=== PATIENT | female | born 1975 | race Caucasian/White ===

== ENCOUNTER 2016-08-14 12:01 | Emergency (ER) | payer MEDICAID ==
[~2016-08-14] VITALS: Ht 152.4 cm; Wt 84.0 kg
[~2016-08-14 12:01] MED LIST: ATOR1TAB18 PO; DEPA500T PO; EPIP0.3I IM; ESTR2TAB PO; FERR324T8 PO; FLUO10CA5 PO; GABA600T PO; MELA1CAP PO; OXCA150T PO; RANI1TAB7 PO; THERTAB41 PO; TOPI1TAB36 PO
[2016-08-14 12:05] VITALS: BP 132/66; PULSE 79; RESP 17; TEMP 98.6; O2SAT 98
[2016-08-14] MEDS ORDERED: AMOX875T PO (12:30)
--- NOTE | 2016-08-14 12:36 | PD ---
HPI Chief Complaint: ENT Complaint Time Seen by Provider: 12:30 Travel History International Travel<30 days: No Contact w/Intl Traveler<30days: No Traveled to known affect area: No History of Present Illness HPI Patient is a 40-year-old female presenting with left ear pain. Present for one day. Pain is sharp and aching in nature. She denies otorrhea. She did endorses hearing loss and feels like she is "underwater ". She denies tinnitus or dizziness. She denies fevers. She has had chronic nasal congestion and rhinitis since May. Her doctor has given her "cough pills "which did not help. She has a dry cough which she attributes to postnasal drip. She denies chest pain, shortness of breath, wheezing and sputum production. She endorses rhinorrhea and frequent sneezing. She denies history of intrinsic pulmonary disease and denies tobacco use. PFSH Past Medical History Arthritis: Yes Asthma: No Blood Disorders: No Bipolar Disorder: Yes Anxiety: Yes Depression: Yes Heart Rhythm Problems: No Cancer: No Cardiovascular Problems: No High Cholesterol: Yes Chemotherapy: No Chest Pain: No Congestive Heart Failure: No COPD: No Cerebrovascular Accident: No Diabetes: No Diminished Hearing: No Endocrine: No Gastrointestinal Disorders: Yes (GERD) Glaucoma: No Genitourinary: No Headaches: No Hepatitis: No Hiatal Hernia: Yes Hypertension: No Immune Disorder: No Implanted Vascular Access Dvce: No Kidney Stones: No Medical other: No Neurologic: Yes Reproductive: No Respiratory: Yes (SLEEP APNEA - NO CPAP) Migraines: Yes Myocardial Infarction: No Radiation Therapy: No Renal Failure: No Seizures: No Sleep Apnea: Yes (HAS CPAP, DOES NOT WEAR CPAP AT HOME) Thyroid Disease: No Ulcer: No ?: Not : 3 Para: 3 Ovarian Cysts: Yes Past Surgical History Abdominal Surgery: Yes (HERNIA X 3 REPAIR UMBILICAL REGION,) AICD: No Appendectomy: No Body Medical Devices: MESH FROM HERNIA REPAIR Cardiac Surgery: No Section: Yes (3) Cholecystectomy: No Ear Surgery: No Endocrine Surgery: No Eye Surgery: No Genitourinary Surgery: No Gynecologic Surgery: Yes (C-SECTIONS X 3, HYSTERECTOMY, CATIE OOPHORECTOMY 2010 WITH TUMOR REMOVAL ) Hysterectomy: Yes Joint Replacement: No Neurologic Surgery: No Oral Surgery: No Pacemaker: No Thoracic Surgery: No Other Surgery: Yes (09/15 ABD HYSTERECTOMY) Social History Alcohol Use: Yes (OCCASIONALLY) Tobacco Use: No Substance Use: Yes (occasional marijuana) Allergies-Medications (Allergen,Severity, Reaction): Coded Allergies: Anaprox (Verified Allergy, Severe, ANAPHALACTIC SHOCK, 08/14/16) Ibuprofen (Verified Allergy, Severe, ANAPHALACTIC SHOCK, 08/14/16) Naproxen (Verified Allergy, Severe, 08/14/16) Nonsteroidal Anti-Inflammatory Agts (Unverified Allergy, Severe, ANAPHYLAXIS, 08/14/16) [place] (Verified Allergy, Severe, Anaphylaxis, 08/14/16) Sulfa (Verified Allergy, Severe, ANAPHALACTIC SHOCK, 08/14/16) Reported Meds & Prescriptions Reported Meds & Active Scripts Active Amoxicillin 875 Mg Tab 875 Mg PO BID Ranitidine Maximum Strength (Ranitidine HCl) 150 Mg Tab 150 Mg PO DAILY Reported Topiramate 50 Mg Tab 50 Mg PO BID Oxcarbazepine 150 Mg Tab 300 Mg PO DAILY Melatonin 1 Mg Cap 3 Cap PO HS Fluoxetine (Fluoxetine HCl) 10 Mg Cap 10 Mg PO DAILY Estradiol 2 Mg Tab 2 Mg PO DAILY Depakote DR (Divalproex Sodium) 500 Mg Tabdr 4 Tab PO DAILY Ferrous Fumarate 324 Mg Tab 325 Mg PO DAILY Epipen 2-Tong Inj (Epinephrine) 0.3 Mg/0.3 Ml Pfpen 0.3 Mg IM ONCE PRN Atorvastatin (Atorvastatin Calcium) 80 Mg Tab 80 Mg PO HS Review of Systems Except as stated in HPI: all other systems reviewed are Neg Physical Exam Narrative GENERAL: Well-developed and well-nourished adult female in no acute distress. SKIN: Warm and dry. Good turgor without tenting. HEAD: Normocephalic and atraumatic. EYES: PERRL bilaterally, 5mm. EOMI bilaterally. No injection or icterus present. No proptosis. Lids without edema or erythema. ENT: Bilateral ear canals are non-edematous/non-erythematous without otorrhea. Left TM is bulging, erythematous and slightly distorted without evidence of perforation, or air-fluid level. Right TM is somewhat dull without erythema or distortion. Nasal mucosa erythematous and edematous without discharge, septum intact and midline. Buccal mucosa pink and moist. Oropharynx free of erythema, tonsillar hypertrophy, masses, swelling, asymmetry and exudates. Uvula midline and airway patent. NECK: Supple, no meningeal signs. Trachea midline, no JVD. No cervical or facial lymphadenopathy. CARDIOVASCULAR: Regular rate and rhythm without murmurs, rubs, clicks or gallops. Radial and posterior tibial pulses 2+ bilaterally. No pedal edema. RESPIRATORY: Clear to auscultation bilaterally with symmetrical rise and fall, no distress or use of accessory muscles. GASTROINTESTINAL: Non-tender, non-distended. Normal bowel sounds all 4 quadrants. No masses or organomegaly present. MUSCULOSKELETAL: No gait disturbances. Patient freely moving all four extremities spontaneously. Extremities without clubbing, cyanosis, or edema. No obvious deformities. NEUROLOGIC: CN II-XII grossly intact. Awake and alert. Motor grossly within normal limits. Normal speech. PSYCHIATRIC: Appropriate mood and affect; insight and judgment normal. Data Data Last Documented VS Vital Signs Date Time Temp Pulse Resp B/P Pulse Ox O2 Delivery O2 Flow Rate FiO2 08/14/16 12:05 98.6 79 17 132/66 98 MDM Medical Decision Making Medical Screen Exam Complete: Yes Emergency Medical Condition: Yes Differential Diagnosis Otitis media versus eustachian tube dysfunction versus sinusitis versus allergic rhinitis Narrative Course Patient is a 40-year-old female with history and physical suggestive of early otitis media to the left ear. This is likely secondary to the rhinitis and sinus issues she's been dealing with for the last 2-3 months. As this has been chronic is most likely allergy related. Recommend patient to use OTC antihistamines and nasal steroids and nasal rinses. Given prescription for amoxicillin. Recommended follow-up with PCP or ENT this week.See discharge paperwork for further instructions. The plan was discussed with the patient who acknowledged their understanding and agreement. Reinforced the follow-up with primary care is critically important. Patient instructed on emergent conditions that should prompt return to ED. Diagnosis Primary Impression: Otitis media Qualified Code: H66.92 - Left otitis media, unspecified chronicity, unspecified otitis media type Additional Impression: Rhinitis Qualified Code: J30.9 - Allergic rhinitis, unspecified allergic rhinitis trigger, unspecified rhinitis seasonality Patient Instructions: Allergic Rhinitis (ED), General Instructions, Otitis Media (ED) Additional Instructions: Take medication as prescribed OTC Mucinex, cough suppressants, and decongestants as needed OTC Tylenol or Ibuprofen for fever and discomfort OTC Zyrtec and Nasacort nasal spray will help with nasal symptoms Drink lots of fluid to help clear mucous/drainage and stay hydrated Follow up with PCP in 2 days Return to the ED for any acute worsening of symptoms Med/Other Pt SpecificInfo: Prescription(s) given Scripts Amoxicillin 875 Mg Hjl121 Mg PO BID #20 TAB Prov:Joey Meade MD 08/14/16 Disposition: 01 DISCHARGE HOME Condition: Stable Reji Garcia III Aug 14, 2016 12:36
[2016-09-28] MEDS ORDERED: BROMSYP PO (16:23)
[2016-09-29] MEDS ORDERED: PROM6.256 PO (12:38)
[2016-10-18] MEDS ORDERED: ESTR2TAB PO (14:17)
[2016-10-18] MEDS ORDERED: AUGM875T PO (14:34)
[2016-10-26] MEDS ORDERED: MUPI2OIN TOPICAL (09:42)
[2016-10-28] MEDS ORDERED: FLUC150T PO (17:13)
[2017-01-10] MEDS ORDERED: PRED10 PO (09:55)
[2017-01-10] MEDS ORDERED: BROMSYP PO (09:55)
== END 2016-08-14 12:37 | disposition home or self-care (01) ==
LOC: PHEFT 12:01
DX: H66.92 Otitis media, unspecified, left ear (principal); E78.00 Pure hypercholesterolemia, unspecified
CPT/HCPCS: 99283

== ENCOUNTER 2016-10-02 13:22 | Inpatient (IN) | payer OTHER ==
[~2016-10-02] VITALS: Ht 152.4 cm; Wt 81.2 kg
[~2016-10-02 13:22] MED LIST changes: +AMOX875T PO; -GABA600T PO; +PROM6.256 PO; -THERTAB41 PO
[2016-10-02 13:30] VITALS: BP 121/57; PULSE 82; RESP 18; TEMP 98.5; O2SAT 95
[2016-10-02] MEDS ORDERED: DEPA500T PO (14:00)
[2016-10-02] MEDS ORDERED: TOPA50TA7 PO (14:08)
[2016-10-02] MEDS ORDERED: GABA600T PO (14:10)
[2016-10-02] MEDS ORDERED: EPINEPHrine HCL (1:1000) 1 MG/ML VIAL IM PRN (17:15)
[2016-10-02] MEDS ORDERED: MAGNESIUM HYDROXIDE SUSP 30 ML CUP PO PRN (17:15)
[2016-10-02] MEDS ORDERED: ALUMINUM/MAGNESIUM/SIMETH 30 ML CUP PO PRN (17:15)
[2016-10-02] MEDS ORDERED: LORazepam 2 MG/ML VIAL IM PRN (17:15)
[2016-10-02 18:00] VITALS: BP 123/56; PULSE 86; RESP 18; O2SAT 95
[2016-10-02 20:10] VITALS: BP 121/68; PULSE 86; RESP 18; TEMP 97; O2SAT 93
[2016-10-02] MEDS: ATORVASTATIN 80 MG TAB PO SCH (21:52)
[2016-10-02] MEDS: DIVALPROEX DR 500 MG TABEC PO SCH (21:52)
[2016-10-02] MEDS: LORazepam 1 MG TAB PO PRN (21:52)
[2016-10-02] MEDS: ACETAMINOPHEN 325 MG TAB PO PRN (23:13)
[2016-10-03 05:57] VITALS: BP 161/75; PULSE 64; RESP 16; TEMP 96.2; O2SAT 93
[2016-10-03] MEDS: TOPIRAMATE 25 MG TAB PO SCH ×2 (08:40→21:53)
[2016-10-03] MEDS: OXcarbazepine 300 MG TAB PO SCH (08:40)
[2016-10-03] MEDS: GABAPENTIN 400 MG CAP PO SCH ×2 (08:40→21:53)
[2016-10-03] MEDS: DIVALPROEX SODIUM E.R. 500 MG TAB PO SCH (08:40)
[2016-10-03] MEDS: FAMOTIDINE 20 MG TAB PO SCH (08:41)
[2016-10-03] MEDS: ESTRADIOL 1 MG TAB PO SCH (09:00)
[2016-10-03] MEDS ORDERED: AZITHROMYCIN 250 MG TAB PO ONE (09:00)
[2016-10-03] MEDS: FERROUS FUMARATE 325 MG TAB (106 MG ELEMENTAL IRON) PO SCH (09:00)
[2016-10-03] MEDS ORDERED: INFLUENZA VIRUS VACCINE (QUADRIVALENT) 0.5 ML SYR IM ONE (10:00)
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
--- NOTE | 2016-10-03 15:07 | MB ---
cc: THERESE GUZMÁN M.D. DATE OF CONSULTATION: 10/03/2016 HISTORY OF PRESENT ILLNESS She is a 40-year-old seen in neurological consultation. She is admitted to the psychiatric department for depression and suicidal thoughts. The patient has a history of left sciatica and history of migraine headaches. She has daily headaches and also what appears to be some migraine headaches. She has been treated for these for quite sometime. She follows with a neurologist, Dr. Rg out of [place]. She is currently taking topiramate 50 mg twice a day and Gabapentin 1200 mg twice a day for the sciatica. She has been on antidepressants and she has been on valproic acid and Trileptal for this. EXAMINATION The patient is alert, pleasant, oriented. Ocular movements and visual chin full. Pupils equal and reactive. Neck is supple. She is in good spirits at the time of my visit. I saw her along with the RN. She is ambulating reasonably well. Reflexes were 1-2+ including the ankles and plantar responses were flexor. ASSESSMENT Chronic headaches and migraines. Chronic left-sided sciatica. She follows with a neurologist in [place] or [place]. I encouraged her to continue to followup and actually she has an appointment there for the beginning of October. She has been admitted for depression management. I would continue the same dose of Gabapentin and topiramate and as soon as she is discharged, she is to resume neurological care as discussed. No other neurologic intervention needed at this point. Thank you for asking us to assist in her care. MD DAVON Wylie/PAZ /2:07 PM /2:54 PM
[2016-10-03] MEDS: LORazepam 1 MG TAB PO PRN (17:13)
[2016-10-03 19:29] VITALS: BP 128/57; PULSE 93; RESP 16; TEMP 97.9; O2SAT 97
[2016-10-03] MEDS: ATORVASTATIN 80 MG TAB PO SCH (21:53)
[2016-10-03] MEDS: DIVALPROEX DR 500 MG TABEC PO SCH (21:53)
[2016-10-04 05:44] VITALS: BP 105/62; PULSE 67; RESP 16; TEMP 98
[2016-10-04 08:26] LABS: ANION GAP 11 MEQ/L (5-15); BICARBONATE 23.3 MEQ/L (21.0-32.0); BLOOD UREA NITROGEN 10 MG/DL (7-18); CHLORIDE 107 MEQ/L (98-107); GLOMERULAR FILTRATION RATE 100 ML/MIN (>89); POTASSIUM 4.1 MEQ/L (3.5-5.1); SODIUM (NA) 141 MEQ/L (136-145)
[2016-10-04 08:30] LABS: HDL CHOLESTEROL 30.9 MG/DL (40.0-60.0); LDL CHOLESTEROL 31 MG/DL (0-99)
[2016-10-04] MEDS: ESTRADIOL 1 MG TAB PO SCH (09:55)
[2016-10-04] MEDS: FERROUS FUMARATE 325 MG TAB (106 MG ELEMENTAL IRON) PO SCH (09:55)
[2016-10-04] MEDS: OXcarbazepine 300 MG TAB PO SCH (09:55)
[2016-10-04] MEDS: FAMOTIDINE 20 MG TAB PO SCH (09:55)
[2016-10-04] MEDS: DULoxetine HCl DR 20 MG CAP PO SCH (09:55)
[2016-10-04] MEDS: GABAPENTIN 400 MG CAP PO SCH ×2 (09:55→21:36)
[2016-10-04] MEDS: DIVALPROEX SODIUM E.R. 500 MG TAB PO SCH (09:55)
[2016-10-04] MEDS: AZITHROMYCIN 250 MG TAB PO SCH (09:56)
[2016-10-04] MEDS: TOPIRAMATE 25 MG TAB PO SCH ×2 (09:56→21:36)
--- NOTE | 2016-10-04 11:09 | HHI.PYPN ---
Subjective Remarks Continues to be very depressed and spends most of her time in bed. Got first dose of antidepressant medication this morning and appears to be tolerating it adequately well. Still has no motivation and reports suicidal ideation. Review of Systems ROS Limitations: Clinical Condition Except as stated in HPI: all other systems reviewed are Neg Objective Alert: Yes [place]: Person, Place, Date, Situation Mood: Depressed Affect: Restricted Memory Intact: Immediate, Recent, Remote Hallucinations: Other Delusions: No Delusion Type: Other Suicidal: Ideation Homicidal: Ideation Insight/Judgement Impaired insight and impaired judgment. Labs Test 10/04/16 07:50 Sodium Level 141 MEQ/L Potassium Level 4.1 MEQ/L Chloride Level 107 MEQ/L Carbon Dioxide Level 23.3 MEQ/L Anion Gap 11 MEQ/L Blood Urea Nitrogen 10 MG/DL Creatinine 0.65 MG/DL Estimat Glomerular Filtration 100 ML/MIN Rate Random Glucose 99 MG/DL Calcium Level 8.5 MG/DL Triglycerides Level 362 MG/DL Cholesterol Level 134 MG/DL LDL Cholesterol 31 MG/DL HDL Cholesterol 30.9 MG/DL Cholesterol/HDL Ratio 4.33 RATIO Vitals/IOs Vital Signs Date Time Temp Pulse Resp B/P Pulse Ox O2 Delivery O2 Flow Rate FiO2 10/04/16 05:44 98.0 67 16 105/62 10/03/16 19:29 97 10/02/16 18:00 Room Air Assessment & Plan Problem List: (1) Chronic major depressive disorder ICD Code: F32.9 (2) Migraine ICD Code: G43.909 (3) Obesity ICD Code: E66.9 Assessment & Plan Estimated LOS: days patient started antidepressant medication today. If she tolerates it without incident, we will titrate the dose up to a therapeutic level. In the meantime. She is being encouraged to participate in individual and group therapies. Still anticipate the patient will need to be in the hospital for the next 2-3 days. Justification for Cont. Inpt. Continues to report suicidal ideation and has no interest in caring for herself. Request HC Surrog/Guard Advoc?: No Jose Alejandro Zurita MD Oct 04, 2016 11:09
[2016-10-04] MEDS: LORazepam 1 MG TAB PO PRN ×2 (15:27→21:36)
[2016-10-04 18:39] LABS: HEMOGLOBIN A1a 1.2 %; HEMOGLOBIN A1b 0.8 %; HEMOGLOBIN LA1C 1.7 %
[2016-10-04 18:40] LABS: HEMOGLOBIN F 0.8 %; HEMOGLOBIN P3 3.2 %
[2016-10-04 21:09] VITALS: BP 121/77; PULSE 92; RESP 16; TEMP 98.7; O2SAT 97
[2016-10-04] MEDS: ATORVASTATIN 80 MG TAB PO SCH (21:36)
[2016-10-04] MEDS: DIVALPROEX DR 500 MG TABEC PO SCH (21:36)
[2016-10-05 05:42] VITALS: BP 108/51; PULSE 90; RESP 16; TEMP 98.1; O2SAT 96
[2016-10-05] MEDS: TOPIRAMATE 25 MG TAB PO SCH ×2 (08:43→21:42)
[2016-10-05] MEDS: OXcarbazepine 300 MG TAB PO SCH (08:44)
[2016-10-05] MEDS: FAMOTIDINE 20 MG TAB PO SCH (08:44)
[2016-10-05] MEDS: AZITHROMYCIN 250 MG TAB PO SCH (08:44)
[2016-10-05] MEDS: GABAPENTIN 400 MG CAP PO SCH ×2 (08:44→21:42)
[2016-10-05] MEDS: DULoxetine HCl DR 20 MG CAP PO SCH (08:44)
[2016-10-05] MEDS: FERROUS FUMARATE 325 MG TAB (106 MG ELEMENTAL IRON) PO SCH (08:44)
[2016-10-05] MEDS: ESTRADIOL 1 MG TAB PO SCH (08:44)
[2016-10-05] MEDS: DIVALPROEX SODIUM E.R. 500 MG TAB PO SCH (08:44)
[2016-10-05] MEDS: LORazepam 1 MG TAB PO PRN (08:44)
--- NOTE | 2016-10-05 12:46 | HHI.PYPN ---
Subjective Remarks Continues to express multiple symptoms of anxiety, pain complaints, depression, anhedonia, diminished energy, irritability and anger problems. Does not feel the Depakote is helpful and would like to try a different mood stabilizer. This physician provided informed consent regarding lamotrigine and will start at 25 mg per day, beginning tomorrow. Review of Systems ROS Limitations: Clinical Condition Except as stated in HPI: all other systems reviewed are Neg Objective Alert: Yes [place]: Person, Place, Date, Situation Mood: Anxious Affect: Restricted Memory Intact: Immediate, Recent, Remote Hallucinations: Other Delusions: No Delusion Type: Other Suicidal: Ideation Homicidal: Ideation Insight/Judgement Insight and judgment remain impaired as she complains vociferously about her life choices and yet is hesitant or unwilling to make different choices. Remains at significant risk for self-harm. Vitals/IOs Vital Signs Date Time Temp Pulse Resp B/P Pulse Ox O2 Delivery O2 Flow Rate FiO2 10/05/16 05:42 98.1 90 16 108/51 96 10/02/16 18:00 Room Air Intake and Output 10/04/16 10/04/16 10/05/16 08:00 16:00 00:00 Intake Total 480 ml Balance 480 ml Assessment & Plan Problem List: (1) Chronic major depressive disorder ICD Code: F32.9 (2) Migraine ICD Code: G43.909 (3) Obesity ICD Code: E66.9 Assessment & Plan Estimated LOS: days have diminished the dose of Depakote in a trial of removing her from this medication and starting lamotrigine tomorrow. She will continue on Cymbalta. Anticipate discharge by Monday. Justification for Cont. Inpt. Patient remains unable to contract for safety and unstable emotionally. Request HC Surrog/Guard Advoc?: No Jose Alejandro Zurita MD Oct 05, 2016 12:46
[2016-10-05] MEDS: ACETAMINOPHEN 325 MG TAB PO PRN (17:00)
[2016-10-05 18:00] VITALS: BP 139/71; PULSE 94; RESP 18; TEMP 98; O2SAT 95
[2016-10-05] MEDS: guaiFENesin/CODEINE SYRUP 200 MG/20 MG/10 ML CUP PO PRN ×2 (18:29→22:13)
[2016-10-05] MEDS: ATORVASTATIN 80 MG TAB PO SCH (21:42)
[2016-10-06] MEDS: guaiFENesin/CODEINE SYRUP 200 MG/20 MG/10 ML CUP PO PRN ×3 (03:53→21:57)
[2016-10-06 05:24] VITALS: BP 97/46; PULSE 60; RESP 18; TEMP 97.7; O2SAT 98
[2016-10-06] MEDS: lamoTRIgine 25 MG TAB PO SCH (08:28)
[2016-10-06] MEDS: FERROUS FUMARATE 325 MG TAB (106 MG ELEMENTAL IRON) PO SCH (08:28)
[2016-10-06] MEDS: OXcarbazepine 300 MG TAB PO SCH (08:28)
[2016-10-06] MEDS: AZITHROMYCIN 250 MG TAB PO SCH (08:28)
[2016-10-06] MEDS: DULoxetine HCl DR 20 MG CAP PO SCH (08:28)
[2016-10-06] MEDS: ESTRADIOL 1 MG TAB PO SCH (08:28)
[2016-10-06] MEDS: GABAPENTIN 400 MG CAP PO SCH ×2 (08:28→21:54)
[2016-10-06] MEDS: TOPIRAMATE 25 MG TAB PO SCH ×2 (08:29→21:54)
[2016-10-06] MEDS: FAMOTIDINE 20 MG TAB PO SCH (08:29)
[2016-10-06] MEDS: ACETAMINOPHEN 325 MG TAB PO PRN ×2 (08:29→16:29)
[2016-10-06] MEDS: DIVALPROEX SODIUM E.R. 500 MG TAB PO SCH (08:29)
--- NOTE | 2016-10-06 10:15 | HHI.PYPN ---
Subjective Remarks Remains depressed with suicidal ideation and does not want to go home. Complaining of a headache today. Started Lamictal. Continues on Cymbalta at low dose. Review of Systems ROS Limitations: Clinical Condition Except as stated in HPI: all other systems reviewed are Neg Objective Alert: Yes [place]: Person, Place, Date, Situation Mood: Anxious Affect: Restricted Memory Intact: Immediate, Recent, Remote Hallucinations: Other Delusions: No Delusion Type: Other Suicidal: Ideation Homicidal: Ideation Insight/Judgement Impaired but adequate. Vitals/IOs Vital Signs Date Time Temp Pulse Resp B/P Pulse Ox O2 Delivery O2 Flow Rate FiO2 10/06/16 05:24 97.7 60 18 97/46 98 10/02/16 18:00 Room Air Assessment & Plan Problem List: (1) Chronic major depressive disorder ICD Code: F32.9 (2) Migraine ICD Code: G43.909 (3) Obesity ICD Code: E66.9 Assessment & Plan Estimated LOS: days will continue with current medicines at current doses to determine tolerability. Anticipate the patient will be in the hospital for 2 more days to resolve her acute crisis and demonstrate tolerability of medicines. Justification for Cont. Inpt. Unable to contract for safety. Request HC Surrog/Guard Advoc?: No Jose Alejandro Zurita MD Oct 06, 2016 10:15
[2016-10-06 18:38] VITALS: BP 119/57; PULSE 65; RESP 18; TEMP 97.8; O2SAT 95
[2016-10-06] MEDS: DIVALPROEX DR 500 MG TABEC PO SCH ×2 (21:00→21:54)
[2016-10-06] MEDS: ATORVASTATIN 80 MG TAB PO SCH (21:54)
[2016-10-07 05:18] VITALS: BP 101/55; PULSE 60; RESP 16; TEMP 97.3; O2SAT 93
[2016-10-07] MEDS: ACETAMINOPHEN 325 MG TAB PO PRN (05:35)
[2016-10-07] MEDS: guaiFENesin/CODEINE SYRUP 200 MG/20 MG/10 ML CUP PO PRN ×3 (07:12→15:54)
[2016-10-07] MEDS: DIVALPROEX SODIUM E.R. 500 MG TAB PO SCH (08:14)
[2016-10-07] MEDS: DULoxetine HCl DR 20 MG CAP PO SCH (08:14)
[2016-10-07] MEDS: FERROUS FUMARATE 325 MG TAB (106 MG ELEMENTAL IRON) PO SCH (08:14)
[2016-10-07] MEDS: AZITHROMYCIN 250 MG TAB PO SCH (08:14)
[2016-10-07] MEDS: GABAPENTIN 400 MG CAP PO SCH (08:14)
[2016-10-07] MEDS: lamoTRIgine 25 MG TAB PO SCH (08:15)
[2016-10-07] MEDS: OXcarbazepine 300 MG TAB PO SCH (08:15)
[2016-10-07] MEDS: TOPIRAMATE 25 MG TAB PO SCH (08:15)
[2016-10-07] MEDS: ESTRADIOL 1 MG TAB PO SCH (08:15)
[2016-10-07] MEDS: FAMOTIDINE 20 MG TAB PO SCH (08:16)
--- NOTE | 2016-10-07 13:16 | HHI.DS ---
Psychiatry Discharge Summary Inpatient Psychiatric care?: Yes Advance Directive: Yes Mental Health AdvanceDirective: Yes Name and Number: Patient declined at this time Health Care Proxy: Yes (Patient declined at this time) Name and Phone Number: Patient declined at this time Admission Admission Date Oct 02, 2016 at 17:05 Admission Diagnosis: (1) Major depression, single episode ICD Code: F32.9 (2) Chronic major depressive disorder ICD Code: F32.9 Brief History This is a 40-year-old female with a multiyear history of depressive symptoms. She was admitted yesterday for acute suicidal ideation with plan of overdosing. She did not specify what she would take in an overdose attempt but she is prescribed Depakote and Trileptal by [facility]. Patient has no significant stressor that made her suicidal and complains that she has been suicidal and depressed for years. She does not see the point of going on and living. She works at [employer] and has a 17 and 13-year-old children. She states that she is cursed at by her children and they don't want anything to do with her. Her mother supports her financially but the patient does not have the ability to live independently. She describes multiple chronic symptoms of depression, including depressed mood, anhedonia, feelings of guilt, low self- esteem, diminished energy, social withdrawal, irritability, sleeping too much, anxiety and suicidal ideation. She states her medicines used to work better but she has grown used to them. She also feels that any antidepressant that she 's tried has either not worked or backfired. She is willing to try Cymbalta, as suggested by this physician. Tobacco Use In Past 30 Days: No Tobacco Past 30 Days Alcohol Use: 2-4 Times Per Month Hospital Course Patient participated in individual as well as group therapies throughout the hospital course. Her medications were changed substantially and she is being weaned off the Depakote and the Trileptal. She is being titrated up on the Lamictal and the Cymbalta. Patient is tolerating these medication changes well but does not need to continue them in the hospital. No other procedures to place. She will be referred for follow up at [facility]. Results Blood Pressure 101 / 55 Vital Signs Date Time Temp Pulse Resp B/P Pulse Ox O2 Delivery O2 Flow Rate FiO2 10/07/16 05:18 97.3 60 16 101/55 93 Laboratory Results Test 10/04/16 07:50 Hemoglobin A1c 5.0 % (4.3-6.0) Triglycerides Level 362 MG/DL (42-150) Cholesterol Level 134 MG/DL (120-200) LDL Cholesterol 31 MG/DL (0-99) HDL Cholesterol 30.9 MG/DL (40.0-60.0) Summary of Procedures None Pending results at discharge: No Medications # of Antipsychotic meds at D/C: 0 Approp Antipsych med options 1 - Minimum of three failed multiple trials of monotherapy. 2 - Documented plan to taper to monotherapy due to previous use of multiple meds OR cross-taper in progress at D/C. 3 - Documentation of augmentation of Clozapine. 4 - Justification other than those listed in allowable values 1-3, document here : Discharge Discharge Date: Oct 07, 2016 Discharge Diagnosis: (1) Major depression, single episode ICD Code: F32.9 Mental Status Exam at Disch Mental status exam is intact at the time of discharge and the patient has no suicidal or homicidal ideation or psychotic symptoms. Her cognition is intact. She verbally contracts for safety. She has future plans. She is being referred for follow up treatment. Pt Condition on Discharge: Stable Discharge Disposition: Discharge Home Discharge Instructions Diet Instructions: As Tolerated, No Restrictions Activities you can perform: Regular-No Restrictions Discharge Time > 30 minutes Discharge/Advance Care Plan Health Problems: (1) Chronic major depressive disorder (2) Migraine (3) Obesity Goals to promote your health * To prevent worsening of your condition and complications * To maintain your health at the optimal level Directions to meet your goals Take your medications as prescribed Follow your dietary instruction Follow activity as directed Keep your appointments as scheduled Take your immunizations and boosters as scheduled If your symptoms worsen call your PCP, if no PCP go to Urgent Care Center or Emergency Room For 27/02 questions related to your inpatient stay or results of tests pending at discharge, please contact Dr. Jose Alejandro Zurita at Smoking is Dangerous to Your Health. Avoid second hand smoking Jose Alejandro Zurita MD Oct 07, 2016 13:16
[2016-10-07] MEDS ORDERED: DEPA500T3 PO (13:20)
[2016-10-07] MEDS ORDERED: LAMO25 PO (13:20)
[2016-10-07] MEDS ORDERED: OXCA300T PO (13:20)
[2016-10-07] MEDS ORDERED: DULO20 PO (13:20)
[2016-10-07] MEDS ORDERED: GUAI100S5 PO (16:44)
[2016-10-18] MEDS ORDERED: ESTR2TAB PO (14:17)
[2016-10-18] MEDS ORDERED: AUGM875T PO (14:34)
[2016-10-26] MEDS ORDERED: MUPI2OIN TOPICAL (09:42)
[2016-10-28] MEDS ORDERED: FLUC150T PO (17:13)
[2017-01-10] MEDS ORDERED: BROMSYP PO (09:55)
[2017-01-10] MEDS ORDERED: PRED10 PO (09:55)
== END 2016-10-07 16:45 | disposition home or self-care (01) | DRG 885 ==
LOC: NEDAMB 13:22 → NEDA 17:05 → H260 20:00
PROVIDERS: ADMIT Psychiatry & Neurology Psychiatry; ATTEND Psychiatry & Neurology Psychiatry
DX: F32.1 Major depressive disorder, single episode, moderate (principal); R45.851 Suicidal ideations; G43.909 Migraine, unspecified, not intractable, without status migrainosus; E66.9 Obesity, unspecified; Z68.35 Body mass index [BMI] 35.0-35.9, adult; M54.32 Sciatica, left side
CPT/HCPCS: 80048; 80061; 80164; 83036; 99285

== ENCOUNTER 2017-02-11 18:21 | Emergency (ER) | payer MEDICAID, OTHER ==
[~2017-02-11] VITALS: Ht 149.9 cm; Wt 72.0 kg
[~2017-02-11 18:21] MED LIST changes: -AMOX875T PO; +BROMSYP PO; +DEPA500T3 PO; +DULO20 PO; +FLUC150T PO; -FLUO10CA5 PO; +GABA600T PO; +LAMO25 PO; -MELA1CAP PO; +MUPI2OIN TOPICAL; +OXCA300T PO; +PRED10 PO; +TOPA50TA7 PO; -TOPI1TAB36 PO
[2017-02-11 18:25] VITALS: BP 104/61; PULSE 71; RESP 16; TEMP 98.1; O2SAT 98
[2017-02-11] MEDS ORDERED: LAMO100 PO (18:39)
--- NOTE | 2017-02-11 19:07 | PD ---
HPI Chief Complaint: Fall Time Seen by Provider: 19:03 Travel History International Travel<30 days: No Contact w/Intl Traveler<30days: No Traveled to known affect area: No History of Present Illness HPI This 41-year-old female said she had a fall earlier today. She was moving furniture and fell off a ramp L about 2 feet. She has noted some bruising in various places. She is having some pain in her arm that she is unable to localize exactly where it hurts foot seemed okay initially but now is hurting and she has trouble walking on it. She is also having some pain in the right inguinal area she has a history of a ventral hernia repair and she feels like the repair may have broken down. She did not hit her head. There was no loss of consciousness PFSH Past Medical History Hx Anticoagulant Therapy: No Arthritis: Yes Asthma: No Autoimmune Disease: No Blood Disorders: No Bipolar Disorder: Yes Anxiety: Yes Depression: Yes Heart Rhythm Problems: No Cancer: No Cardiovascular Problems: Yes (HIGH TRYGLYCERIDES) High Cholesterol: Yes Chemotherapy: No Chest Pain: No Congestive Heart Failure: No COPD: No Cerebrovascular Accident: No Diabetes: No Diminished Hearing: No Endocrine: No Gastrointestinal Disorders: Yes (GERD) GERD: Yes Glaucoma: No Genitourinary: No Headaches: No Hepatitis: No Hiatal Hernia: Yes Hypertension: No Immune Disorder: No Implanted Vascular Access Dvce: No Kidney Stones: No Neurologic: Yes Psychiatric: Yes (Hx of treatment for depression) Reproductive: No Respiratory: Yes (SLEEP APNEA - NO CPAP) Immunizations Current: Yes Migraines: Yes Myocardial Infarction: No Radiation Therapy: No Renal Failure: No Seizures: No Sleep Apnea: Yes (GETTING NEW ONE-NOT CURRENTLY USING CPAP) Thyroid Disease: No Ulcer: No Tetanus Vaccination: Unknown ?: Not : 3 Para: 3 Miscarriage: 0 : 0 Ovarian Cysts: Yes Past Surgical History Abdominal Surgery: Yes (HERNIA X 4 REPAIR UMBILICAL REGION,) AICD: No Appendectomy: No Arteriovenous Shunt: No Body Medical Devices: MESH FROM HERNIA REPAIR Cardiac Surgery: No Section: Yes (3) Cholecystectomy: No Ear Surgery: No Endocrine Surgery: No Eye Surgery: No Genitourinary Surgery: No Gynecologic Surgery: Yes (C-SECTIONS X 3, HYSTERECTOMY, CATIE OOPHORECTOMY 2011 WITH TUMOR REMOVAL ) Hysterectomy: Yes Insulin Pump: No Joint Replacement: No Neurologic Surgery: No Oral Surgery: No Pacemaker: No Thoracic Surgery: No Other Surgery: Yes (09/15 ABD HYSTERECTOMY, BLADDER REPAIR-SHELF) Social History Alcohol Use: Yes (Occassional social wine per pt. ) Tobacco Use: No (Quit after 20 yrs; Quit in 2008) Substance Use: Yes (occasional use of marijuana) Allergies-Medications (Allergen,Severity, Reaction): Coded Allergies: Anaprox (Verified Allergy, Severe, ANAPHALACTIC SHOCK, 02/11/17) Per pt. Ibuprofen (Verified Allergy, Severe, ANAPHALACTIC SHOCK, 02/11/17) Per pt. Naproxen (Verified Allergy, Severe, 02/11/17) Per pt. Nonsteroidal Anti-Inflammatory Agts (Unverified Allergy, Severe, ANAPHYLAXIS, 02/11/17) Per pt. Fletcher (Verified Allergy, Severe, Anaphylaxis, 02/11/17) Per pt. Sulfa (Verified Allergy, Severe, ANAPHALACTIC SHOCK, 02/11/17) Per pt. Reported Meds & Prescriptions Reported Meds & Active Scripts Active Estradiol 2 Mg Tab 2 Mg PO DAILY Cymbalta DR (Duloxetine HCl) 20 Mg Capdr 20 Mg PO DAILY Ranitidine Maximum Strength (Ranitidine HCl) 150 Mg Tab 150 Mg PO DAILY Reported Lamictal (Lamotrigine) 100 Mg Tab 100 Mg PO DAILY Gabapentin 600 Mg Tab 1,200 Mg PO BID Topamax (Topiramate) 50 Mg Tab 50 Mg PO BID Epipen 2-Tong Inj (Epinephrine) 0.3 Mg/0.3 Ml Pfpen 0.3 Mg IM ONCE PRN Review of Systems General / Constitutional: No: Fever Eyes: No: Diploplia, Blurred Vision HENT: No: Headaches, Vertigo Cardiovascular: No: Chest Pain or Discomfort, Palpitations Respiratory: No: Cough, Shortness of Breath Gastrointestinal: No: Vomiting, Diarrhea Genitourinary: No: Urgency, Frequency Musculoskeletal: Positive: Myalgias, Pain Skin: No Rash, No Itching Neurologic: No: Weakness, Dizziness Psychiatric: No: Anxiety Physical Exam Narrative GENERAL: Well-developed female SKIN: Focused skin assessment warm/dry. HEAD: Atraumatic. Normocephalic. EYES: Pupils equal and round. No scleral icterus. No injection or drainage. ENT: No nasal bleeding or discharge. Mucous membranes pink and moist. NECK: Trachea midline. No JVD. CARDIOVASCULAR: Regular rate and rhythm. No murmur appreciated. RESPIRATORY: No accessory muscle use. Clear to auscultation. Breath sounds equal bilaterally. GASTROINTESTINAL: Abdomen soft, non-tender, nondistended. Hepatic and splenic margins not palpable. Patient has multiple abdominal scars. There is a midline scar where she had a hernia repair. There appears to be some bulging with coughing at this site. MUSCULOSKELETAL: No obvious deformities. No clubbing. No cyanosis. No edema. Examination of the right arm does not show any deformity. There is no focal tenderness. Pulses intact. Sensation intact. The left foot has some tenderness over the arch. Formerly. The skin is intact. There is some tenderness in the right inguinal area. NEUROLOGICAL: Awake and alert. No obvious cranial nerve deficits. Motor grossly within normal limits. Normal speech. PSYCHIATRIC: Appropriate mood and affect; insight and judgment normal. Data Data Last Documented VS Vital Signs Date Time Temp Pulse Resp B/P Pulse Ox O2 Delivery O2 Flow Rate FiO2 02/11/17 19:15 66 17 117/52 98 Room Air 02/11/17 18:25 98.1 Orders Foot, Complete ([id number]) (02/11/17 19:03) Pelvis, Ap Only (Routine) (02/11/17 19:03) MDM Medical Decision Making Medical Screen Exam Complete: Yes Emergency Medical Condition: Yes Medical Record Reviewed: Yes Differential Diagnosis Differential includes contusion of foot, fracture, recurrent hernia, Narrative Course Patient does appear to have a ventral hernia which she says was not present before the fall. The abdomen is otherwise soft. X-ray of the foot is negative for fracture x-ray pelvis is also negative Diagnosis Primary Impression: Contusion Qualified Code: S90.32XA - Contusion of left foot, initial encounter Disposition: 01 DISCHARGE HOME Condition: Stable Iggy Samuel MD Feb 11, 2017 19:06
[2017-02-11 19:15] VITALS: BP 117/52; PULSE 66; RESP 17; O2SAT 98
[2017-02-11 20:35] VITALS: BP 115/70; PULSE 75; RESP 16; O2SAT 96
--- NOTE | 2017-02-11 20:39 | RADRPT ---
EXAM DATE/TIME: 02/11/2017 20:15 [facility] COMPARISON: No previous studies available for comparison. INDICATIONS : Right groin pain after moving today. MEDICAL HISTORY : Arthritis. SURGICAL HISTORY : Hysterectomy. ENCOUNTER: Initial ACUITY: 1 day PAIN SCORE: 8/10 LOCATION: Right groin. FINDINGS: A single frontal view of the pelvis demonstrates no evidence of fracture. The bony pelvic ring is in tact. Bony mineralization is normal. The soft tissues are intact. CONCLUSION: Unremarkable exam. Kareem Raines MD on February 11, 2017 at 20:37 Board Certified Radiologist. This report was verified electronically.
--- NOTE | 2017-02-11 20:39 | RADRPT ---
EXAM DATE/TIME: 02/11/2017 20:10 [facility] COMPARISON: No previous studies available for comparison. INDICATIONS : Left foot pain after falling while moving today. MEDICAL HISTORY : Arthritis. SURGICAL HISTORY : Hysterectomy. ENCOUNTER: Initial ACUITY: 1 day PAIN SCORE: 8/10 LOCATION: Left top of foot. FINDINGS: Three view examination of the left foot demonstrates no soft tissue swelling, dislocation, or fractur e. The tarsal bones appear intact. The interphalangeal and metatarsophalangeal joints are intact. The calcaneus is intact. There is a small spur off the inferior calcaneus at the site of attachment of the plantar aponuerosis. Bony mineralization is normal. CONCLUSION: 1. No acute fracture or malalignment. 2. Small spur off the inferior calcaneus. Kareem Raines MD on February 11, 2017 at 20:37 Board Certified Radiologist. This report was verified electronically.
[2017-02-11 21:11] VITALS: BP 100/57
== END 2017-02-11 21:28 | disposition home or self-care (01) ==
LOC: PHED 18:21
DX: S90.32XA Contusion of left foot, initial encounter (principal); W17.89XA Other fall from one level to another, initial encounter; Y93.E6 Activity, residential relocation
CPT/HCPCS: 72170; 73630; 99284

== ENCOUNTER 2017-05-12 11:23 | Emergency (ER) | payer SELFPAY ==
[~2017-05-12] VITALS: Ht 152.4 cm; Wt 70.7 kg
[~2017-05-12 11:23] MED LIST changes: -ATOR1TAB18 PO; -BROMSYP PO; -DEPA500T PO; -DEPA500T3 PO; -FERR324T8 PO; -FLUC150T PO; +LAMO100 PO; -LAMO25 PO; -MUPI2OIN TOPICAL; -OXCA150T PO; -OXCA300T PO; -PRED10 PO; -PROM6.256 PO
[2017-05-12 11:36] VITALS: BP 111/55; PULSE 79; RESP 18; TEMP 97.9
[2017-05-12] MEDS ORDERED: MELA5TAB15 PO (12:06)
--- NOTE | 2017-05-12 12:31 | RADRPT ---
EXAM DATE/TIME: 05/12/2017 12:20 [facility] COMPARISON: CHEST PA & LAT, April 07, 2015, 16:15. INDICATIONS : Cough. MEDICAL HISTORY : None. SURGICAL HISTORY : None. ENCOUNTER: Initial ACUITY: 1 week PAIN SCORE: 6/10 LOCATION: Bilateral chest FINDINGS: There is mild reticular interstitial prominence present bilaterally, primarily central and basilar. T his configuration appears to have been present to some degree previously. There is no evidence of parminder eolar consolidation or pleural effusion. Cardiac contours are stable. CONCLUSION: Interval increase in fairly symmetric interstitial prominence. Reji Marie MD on May 12, 2017 at 12:27 Board Certified Radiologist. This report was verified electronically.
--- NOTE | 2017-05-12 13:05 | PD ---
HPI . Cough and congestion 7 days Chief Complaint: Cold / Flu Symptoms Time Seen by Provider: 12:00 Travel History International Travel<30 days: No Contact w/Intl Traveler<30days: No Traveled to known affect area: No History of Present Illness HPI 41-year-old female presents to the emergency department for evaluation of cough and congestion 7 days. Patient had mono earlier this year in October. Patient is unsure she's been running fevers at home but was afebrile here in our facility. Patient states the cough and runny nose started 7 days ago. The cough became productive 3 days ago. Patient states she is coughing up thick white sputum. She denies any hemoptysis. Patient denies any abdominal pain, nausea, vomiting. Patient does state that she's had intermittent episodes of loose stool 2 weeks. Patient denies any ear pain or throat pain. PFSH Past Medical History Hx Anticoagulant Therapy: No Arthritis: Yes Asthma: No Autoimmune Disease: No Blood Disorders: No Bipolar Disorder: Yes Anxiety: Yes Depression: Yes Heart Rhythm Problems: No Cancer: No Cardiovascular Problems: Yes (HIGH TRYGLYCERIDES) High Cholesterol: Yes Chemotherapy: No Chest Pain: No Congestive Heart Failure: No COPD: No Cerebrovascular Accident: No Diabetes: No Diminished Hearing: No Endocrine: No Gastrointestinal Disorders: Yes (GERD) GERD: Yes Glaucoma: No Genitourinary: No Headaches: No Hepatitis: No Hiatal Hernia: Yes Hypertension: No Immune Disorder: No Implanted Vascular Access Dvce: No Kidney Stones: No Neurologic: Yes Psychiatric: Yes (Hx of treatment for depression) Reproductive: No Respiratory: Yes Immunizations Current: Yes Migraines: Yes Myocardial Infarction: No Radiation Therapy: No Renal Failure: No Seizures: No Sleep Apnea: Yes Thyroid Disease: No Ulcer: No Tetanus Vaccination: Unknown Influenza Vaccination: No ?: Not : 3 Para: 3 Miscarriage: 0 : 0 Ovarian Cysts: Yes Past Surgical History Abdominal Surgery: Yes (HERNIA X 4 REPAIR UMBILICAL REGION,) AICD: No Appendectomy: No Arteriovenous Shunt: No Body Medical Devices: MESH FROM HERNIA REPAIR Cardiac Surgery: No Section: Yes (3) Cholecystectomy: No Ear Surgery: No Endocrine Surgery: No Eye Surgery: No Genitourinary Surgery: No Gynecologic Surgery: Yes (C-SECTIONS X 3, HYSTERECTOMY, CATIE OOPHORECTOMY 2011 WITH TUMOR REMOVAL ) Hysterectomy: Yes Insulin Pump: No Joint Replacement: No Neurologic Surgery: No Oral Surgery: No Pacemaker: No Thoracic Surgery: No Other Surgery: Yes (09/15 ABD HYSTERECTOMY, BLADDER REPAIR-SHELF) Social History Alcohol Use: Yes (Occassional social wine per pt. ) Tobacco Use: No (Quit after 20 yrs; Quit in 2008) Substance Use: Yes (occasional use of marijuana) Allergies-Medications (Allergen,Severity, Reaction): Coded Allergies: Sulfa (Sulfonamide Antibiotics) (Unverified Allergy, Severe, ANAPHALACTIC SHOCK, 05/12/17) Per pt. diclofenac (Unverified Allergy, Severe, ANAPHYLAXIS, 05/12/17) Per pt. etodolac (Unverified Allergy, Severe, ANAPHYLAXIS, 05/12/17) Per pt. flurbiprofen (Unverified Allergy, Severe, ANAPHYLAXIS, 05/12/17) Per pt. ibuprofen (Unverified Allergy, Severe, ANAPHYLAXIS, 05/12/17) Per pt. indomethacin (Unverified Allergy, Severe, ANAPHYLAXIS, 05/12/17) Per pt. ketoprofen (Unverified Allergy, Severe, ANAPHYLAXIS, 05/12/17) Per pt. ketorolac (Unverified Allergy, Severe, ANAPHYLAXIS, 05/12/17) Per pt. naproxen (Unverified Allergy, Severe, ANAPHYLAXIS, 05/12/17) Per pt. oxaprozin (Unverified Allergy, Severe, ANAPHYLAXIS, 05/12/17) Per pt. strawberry (Unverified Allergy, Severe, Anaphylaxis, 05/12/17) Per pt. Reported Meds & Prescriptions Reported Meds & Active Scripts Active Estradiol 2 Mg Tab 2 Mg PO DAILY Cymbalta DR (Duloxetine HCl) 20 Mg Capdr 20 Mg PO DAILY Reported Melatonin 5 Mg Tab 3 Mg PO HS Lamictal (Lamotrigine) 100 Mg Tab 150 Mg PO DAILY Epipen 2-Tong Inj (Epinephrine) 0.3 Mg/0.3 Ml Pfpen 0.3 Mg IM ONCE PRN Review of Systems Except as stated in HPI: all other systems reviewed are Neg Respiratory: Positive: Cough, No: Hemoptysis Physical Exam Narrative GENERAL: Well-nourished, well-developed 41-year-old female patient. In no acute distress. Nontoxic appearing. SKIN: Focused skin assessment warm/dry. HEAD: Normocephalic. Atraumatic EYES: No scleral icterus. No injection or drainage. NECK: Supple, trachea midline. No JVD or lymphadenopathy. CARDIOVASCULAR: Regular rate and rhythm without murmurs, gallops, or rubs. RESPIRATORY: Breath sounds equal bilaterally. No accessory muscle use. GASTROINTESTINAL: Abdomen soft, non-tender, nondistended. MUSCULOSKELETAL: No cyanosis, or edema. BACK: Nontender without obvious deformity. No CVA tenderness. r Data Data Last Documented VS Vital Signs Date Time Temp Pulse Resp B/P (MAP) Pulse Ox O2 Delivery O2 Flow Rate FiO2 05/12/17 12:02 97 Room Air 05/12/17 11:36 97.9 79 18 111/55 (73) Orders Orders Chest, Single Ap (05/12/17 12:13) MDM Medical Decision Making Medical Screen Exam Complete: Yes Emergency Medical Condition: Yes Differential Diagnosis Differential diagnoses include but not limited to URI, pharyngitis, influenza, viral syndrome, pneumonia Narrative Course 41-year-old female presents emergency department for evaluation of cough and congestion 7 days. Patient states cough became productive 3 days ago when she started coughing up white sputum. Patient is not sure she's had any fevers at home. She is afebrile here in the emergency department. Lungs sounded clear throughout. There is no wheezing or stridor. Chest x-ray was ordered to rule out pneumonia based on patient's symptoms and length of time. Chest x-ray shows interval increase in fairly symmetric interstitial prominence. No evidence of effusion or pneumonia.Based on patient's symptoms, clinical presentation, radiological results, vital sign review and physical exam it is not necessary to admit the patient to the hospital or keep the patient in the emergency department for further evaluation. Patient will be given a prescription for prednisone and Tessalon Perles and discharged home. Diagnosis Primary Impression: Cough in adult Referrals: Primary Care Physician Patient Instructions: Acute Cough (ED), General Instructions Additional Instructions: Please return to emergency department if your symptoms return or worsen. Follow up with your primary care provider. Take medications as prescribed. Med/Other Pt SpecificInfo: Prescription(s) given Scripts Benzonatate (Tessalon Perles) 100 Mg Cap 100 MG PO TID Y for COUGH, #10 CAP 0 Refills Prov: Joann Payton 05/12/17 Prednisone (Prednisone) 20 Mg Tab 40 MG PO DAILY for 5 Days, #5 TAB 0 Refills Take 40 mg (2 tablets) daily for 5 days Prov: Joann Payton 05/12/17 Disposition: 01 DISCHARGE HOME Condition: Stable Joann Payton May 12, 2017 13:05
[2017-05-12] MEDS ORDERED: PRED20 PO (13:10)
[2017-05-12] MEDS ORDERED: BENZ100 PO (13:10)
== END 2017-05-12 13:36 | disposition home or self-care (01) ==
LOC: PHED 11:23 → PHEFT 13:36
DX: R05 Cough (principal); R09.81 Nasal congestion; F31.9 Bipolar disorder, unspecified; F41.9 Anxiety disorder, unspecified; E78.00 Pure hypercholesterolemia, unspecified; K21.9 Gastro-esophageal reflux disease without esophagitis; M19.90 Unspecified osteoarthritis, unspecified site; G47.30 Sleep apnea, unspecified; Z79.899 Other long term (current) drug therapy
CPT/HCPCS: 71010; 99284

== ENCOUNTER 2017-07-07 13:16 | Emergency (ER) | payer SELFPAY ==
[~2017-07-07] VITALS: Ht 152.4 cm; Wt 71.8 kg
[~2017-07-07 13:16] MED LIST changes: +BENZ100 PO; -GABA600T PO; +MELA5 PO; +PRED20 PO; -RANI1TAB7 PO; -TOPA50TA7 PO
[2017-07-07 13:22] VITALS: BP 142/67; PULSE 69; RESP 16; TEMP 97.8; O2SAT 97
--- NOTE | 2017-07-07 14:52 | PD ---
HPI Chief Complaint: Abdominal Pain Time Seen by Provider: 14:35 Travel History International Travel<30 days: No Contact w/Intl Traveler<30days: No Traveled to known affect area: No History of Present Illness HPI 41yo F with PMH of depression and "hysterical blindness" presents to the ED with c/o abdominal pain for a month but worst today. Said she had umbilical hernia repair in 2014 and pain is intermittent to the right of the hernia. However, today pain is constant and burning. Associated with nausea. Normal bowel movement. Denies any fever, chest pain, sob, dysuria, hematuria, vaginal bleeding or discharge, focal weakness or numbness. Said she was at work and passed out twice while standing up because the pain was so bad. Said her work wanted her to mention this but she had a history of syncope and had extensive work up before that was negative. PFSH Past Medical History Hx Anticoagulant Therapy: No Arthritis: Yes Asthma: No Autoimmune Disease: No Blood Disorders: No Bipolar Disorder: Yes Anxiety: Yes Depression: Yes Heart Rhythm Problems: No Cancer: No Cardiovascular Problems: Yes (HIGH TRYGLYCERIDES) High Cholesterol: Yes Chemotherapy: No Chest Pain: No Congestive Heart Failure: No COPD: No Cerebrovascular Accident: No Diabetes: No Diminished Hearing: No Endocrine: No Gastrointestinal Disorders: Yes (GERD) GERD: Yes Glaucoma: No Genitourinary: No Headaches: No Hepatitis: No Hiatal Hernia: Yes Hypertension: No Immune Disorder: No Implanted Vascular Access Dvce: No Kidney Stones: No Neurologic: Yes Reproductive: No Respiratory: Yes Immunizations Current: Yes Migraines: Yes Myocardial Infarction: No Radiation Therapy: No Renal Failure: No Seizures: No Sleep Apnea: Yes Thyroid Disease: No Ulcer: No Tetanus Vaccination: Unknown ?: Not : 3 Para: 3 Miscarriage: 0 : 0 Ovarian Cysts: Yes Past Surgical History Abdominal Surgery: Yes (HERNIA X 4 REPAIR UMBILICAL REGION,) AICD: No Appendectomy: No Arteriovenous Shunt: No Body Medical Devices: MESH FROM HERNIA REPAIR Cardiac Surgery: No Section: Yes (3) Cholecystectomy: No Ear Surgery: No Endocrine Surgery: No Eye Surgery: No Genitourinary Surgery: No Gynecologic Surgery: Yes (C-SECTIONS X 3, HYSTERECTOMY, CATIE OOPHORECTOMY 2010 WITH TUMOR REMOVAL ) Hysterectomy: Yes Insulin Pump: No Joint Replacement: No Neurologic Surgery: No Oral Surgery: No Pacemaker: No Thoracic Surgery: No Other Surgery: Yes (09/15 ABD HYSTERECTOMY, BLADDER REPAIR-SHELF) Social History Alcohol Use: Yes (Occassional ) Tobacco Use: No Substance Use: Yes (occasional use of marijuana) Allergies-Medications (Allergen,Severity, Reaction): Coded Allergies: Sulfa (Sulfonamide Antibiotics) (Unverified Allergy, Severe, ANAPHALACTIC SHOCK, 07/07/17) Per pt. diclofenac (Unverified Allergy, Severe, ANAPHYLAXIS, 07/07/17) Per pt. etodolac (Unverified Allergy, Severe, ANAPHYLAXIS, 07/07/17) Per pt. flurbiprofen (Unverified Allergy, Severe, ANAPHYLAXIS, 07/07/17) Per pt. ibuprofen (Unverified Allergy, Severe, ANAPHYLAXIS, 07/07/17) Per pt. indomethacin (Unverified Allergy, Severe, ANAPHYLAXIS, 07/07/17) Per pt. ketoprofen (Unverified Allergy, Severe, ANAPHYLAXIS, 07/07/17) Per pt. ketorolac (Unverified Allergy, Severe, ANAPHYLAXIS, 07/07/17) Per pt. naproxen (Unverified Allergy, Severe, ANAPHYLAXIS, 07/07/17) Per pt. oxaprozin (Unverified Allergy, Severe, ANAPHYLAXIS, 07/07/17) Per pt. strawberry (Unverified Allergy, Severe, Anaphylaxis, 07/07/17) Per pt. Reported Meds & Prescriptions Reported Meds & Active Scripts Active Tylenol (Acetaminophen) 325 Mg Tab 650 Mg PO Q6H PRN Estradiol 2 Mg Tab 2 Mg PO DAILY Cymbalta DR (Duloxetine HCl) 20 Mg Capdr 20 Mg PO DAILY Reported Melatonin 5 Mg Tab 3 Mg PO HS Lamictal (Lamotrigine) 100 Mg Tab 150 Mg PO DAILY Review of Systems Except as stated in HPI: all other systems reviewed are Neg Physical Exam Narrative GENERAL: 41yo F not in distress. SKIN: Focused skin assessment warm/dry. HEAD: Atraumatic. Normocephalic. EYES: Pupils equal and round at 3mm bilaterally. EOMI. ENT: No nasal bleeding or discharge. Mucous membranes pink and moist. NECK: Trachea midline. No JVD. CARDIOVASCULAR: Regular rate and rhythm. No murmur appreciated. RESPIRATORY: No accessory muscle use. Clear to auscultation. Breath sounds equal bilaterally. GASTROINTESTINAL: Abdomen soft, umbilical hernia easily reducible, soft. Mild ttp right of umbilical hernia. No rebound tenderness or guarding. MUSCULOSKELETAL: No obvious deformities. No clubbing. No cyanosis. No edema. NEUROLOGICAL: Awake and alert. No obvious cranial nerve deficits. Motor grossly within normal limits. Normal speech. Sensation intact. Data Data Last Documented VS Vital Signs Date Time Temp Pulse Resp B/P (MAP) Pulse Ox O2 Delivery O2 Flow Rate FiO2 07/07/17 18:07 62 17 151/73 (99) 96 07/07/17 16:20 Room Air 07/07/17 13:22 97.8 Orders Orders Basic Metabolic Panel (Bmp) (07/07/17 14:46) Complete Blood Count With Diff (07/07/17 14:46) Lipase (07/07/17 14:46) Prothrombin Time / Inr (Pt) (07/07/17 14:46) Act Partial Throm Time (Ptt) (07/07/17 14:46) Urinalysis - C+S If Indicated (07/07/17 14:46) Ct Abd/Pel W Iv Contrast(Rout) (07/07/17 14:46) Morphine Inj (Morphine Inj) (07/07/17 15:00) Electrocardiogram (07/07/17 14:46) Ed Urine Pregnancytest Poc (07/07/17 14:46) Ct Brain W/O Iv Contrast(Rout) (07/07/17 ) Magnesium (Mg) (07/07/17 14:46) Troponin I (07/07/17 14:46) Orthostatic Vital Signs (07/07/17 14:46) Iohexol 350 Inj (Omnipaque 350 Inj) (07/07/17 15:40) Ed Discharge Order (07/07/17 17:38) Labs Laboratory Tests Test 07/07/17 15:10 White Blood Count 5.5 TH/MM3 Red Blood Count 4.01 MIL/MM3 Hemoglobin 11.4 GM/DL Hematocrit 35.2 % Mean Corpuscular Volume 87.7 FL Mean Corpuscular Hemoglobin 28.4 PG Mean Corpuscular Hemoglobin Concent 32.4 % Red Cell Distribution Width 12.0 % Platelet Count 250 TH/MM3 Mean Platelet Volume 8.1 FL Neutrophils (%) (Auto) 55.3 % Lymphocytes (%) (Auto) 37.0 % Monocytes (%) (Auto) 5.3 % Eosinophils (%) (Auto) 1.2 % Basophils (%) (Auto) 1.2 % Neutrophils # (Auto) 3.0 TH/MM3 Lymphocytes # (Auto) 2.0 TH/MM3 Monocytes # (Auto) 0.3 TH/MM3 Eosinophils # (Auto) 0.1 TH/MM3 Basophils # (Auto) 0.1 TH/MM3 CBC Comment DIFF FINAL Differential Comment Prothrombin Time 10.3 SEC Prothromb Time International Ratio 0.9 RATIO Activated Partial Thromboplast Time 29.8 SEC Urine Collection Type CLEAN CATCH Urine Color YELLOW Urine Turbidity CLEAR Urine pH 8.0 Urine Specific Dickens 1.025 Urine Protein NEG mg/dL Urine Glucose (UA) NEG mg/dL Urine Ketones NEG mg/dL Urine Occult Blood NEG Urine Nitrite NEG Urine Bilirubin NEG Urine Leukocyte Esterase NEG Urine WBC 0-2 /hpf Urine Squamous Epithelial Cells 0-5 /hpf Urine Bacteria OCC /hpf Urine Mucus FEW /lpf Microscopic Urinalysis Comment CULT NOT INDICATED Urine Collection Time 15:10 Blood Urea Nitrogen 11 MG/DL Creatinine 0.62 MG/DL Random Glucose 94 MG/DL Calcium Level 8.4 MG/DL Magnesium Level 2.2 MG/DL Sodium Level 139 MEQ/L Potassium Level 4.0 MEQ/L Chloride Level 105 MEQ/L Carbon Dioxide Level 29.2 MEQ/L Anion Gap 5 MEQ/L Estimat Glomerular Filtration Rate 106 ML/MIN Troponin I LESS THAN 0.02 NG/ML Lipase 360 U/L [facility] Medical Decision Making Medical Screen Exam Complete: Yes Emergency Medical Condition: Yes Interpretation(s) EKG: NSR 60bpm. Normal axis. No ST segment elevation or depression. Differential Diagnosis Obstruction vs. colitis vs. IBS vs. conversion disorder vs. electrolyte abnormality vs. arrhythmia Narrative Course 41yo F here mainly for abdominal pain that has been there for 1 month. Abdomen is soft, mild tenderness right of umbilical hernia which is reducible. Labs reviewed, no leukocytosis. BMP unremarkable. Lipase normal. Troponin negative. UA negative. CT a/p showed small cystic mass right adnexa. No etiology for patient's abdominal pain. Previous hernia surgery and normal bowel gas pattern. CT brain negative. Pt given morphine which relieved the pain. Pt is well appearing and tolerating PO now. Return precautions given. Diagnosis Primary Impression: Abdominal pain Qualified Codes: R10.33 - Periumbilical pain Patient Instructions: General Instructions Departure Forms: Tests/Procedures Additional Instructions: Please follow up with [facility] in in 2-3 days. Return to the ED if symptoms worsen. Med/Other Pt SpecificInfo: Prescription(s) given Scripts Acetaminophen (Tylenol) 325 Mg Tab 650 MG PO Q6H Y for PAIN SCALE 1 TO 4, #20 TAB 0 Refills Prov: Trini Dumont DO 07/07/17 Disposition: 01 DISCHARGE HOME Condition: Stable Trini Dumont DO Jul 07, 2017 14:52
[2017-07-07] MEDS ORDERED: MORPHINE SULFATE 4 MG/ML INJ IV PUSH ONE (15:00)
[2017-07-07 15:20] VITALS: BP_SYST 119; BP_SYST 140; BP_SYST 153; BP_DIAS 64; BP_DIAS 65; BP_DIAS 78
[2017-07-07 15:29] LABS: BASOPHIL # 0.1 TH/MM3 (0-0.2); BASOPHIL % 1.2 % (0.0-2.0); EOSINOPHIL # 0.1 TH/MM3 (0-0.4); EOSINOPHIL % 1.2 % (0.0-4.0); HEMATOCRIT 35.2 % (35.0-46.0); HEMO FLAGS DIFF FINAL; MEAN CELL VOLUME 87.7 FL (80.0-100.0); MEAN CORPUSCULAR HEMOGLOBIN 28.4 PG (27.0-34.0); MEAN CORPUSCULAR HGB CONC 32.4 % (32.0-36.0); MONO % 5.3 % (0.0-8.0); NEUT % 55.3 % (16.0-70.0); PLATELET COUNT 250 TH/MM3 (150-450); RED BLOOD COUNT 4.01 MIL/MM3 (4.00-5.30); WHITE BLOOD COUNT 5.5 TH/MM3 (4.0-11.0)
[2017-07-07 15:30] LABS: BLOOD, URINE NEG (NEG); GLUCOSE,URINE NEG (NEG); KETONE, URINE NEG (NEG); NITRITE,URINE NEG (NEG)
[2017-07-07 15:37] LABS: CHLORIDE 105 MEQ/L (98-107); SODIUM (NA) 139 MEQ/L (136-145)
[2017-07-07 15:39] LABS: METHOD OF COLLECTION CLEAN CATCH; MUCUS URINE FEW /lpf (OCC); URINE COLOR YELLOW (YELLW/STRAW)
[2017-07-07 15:40] LABS: ANION GAP 5 MEQ/L (5-15); BACTERIA, URINE OCC /hpf; BICARBONATE 29.2 MEQ/L (21.0-32.0); BLOOD UREA NITROGEN 11 MG/DL (7-18); COMMENT (UR) CULT NOT INDICATED; CULTURE IF INDICATED CULT NOT INDICATED; MAGNESIUM 2.2 MG/DL (1.5-2.5); SQUAMOUS EPITHELIAL CELL URINE 0-5 /hpf (0-5); WBC, URINE 0-2 /hpf (0-5)
[2017-07-07] MEDS ORDERED: IOHEXOL 350 MG/ML 10 ML VIAL (for RAD DIAG) IVCONTRAST ONE (15:40)
[2017-07-07 15:43] LABS: APTT (PATIENT) 29.8 SEC (24.3-30.1); GLOMERULAR FILTRATION RATE 106 ML/MIN (>89); INTERNATIONAL NORMALIZED RATIO 0.9 RATIO; PROTHROMBIN TIME - PATIENT 10.3 SEC (9.8-11.6)
--- NOTE | 2017-07-07 15:47 | RADRPT ---
EXAM DATE/TIME: 07/07/2017 15:31 [facility] COMPARISON: CT BRAIN W/O CONTRAST, January 16, 2014, 23:51. INDICATIONS : Syncopal episodes today. Cephalgia. RADIATION DOSE: 68.02 CTDIvol (mGy) ; Tabletop CT Head MEDICAL HISTORY : Gastroesophageal reflux disease. SURGICAL HISTORY : Hysterectomy. Umbilical hernia repair. section.Bladder suspension repair. ENCOUNTER: Initial ACUITY: 1 day PAIN SCALE: 8/10 LOCATION: cranial TECHNIQUE: Multiple contiguous axial images were obtained of the head. Using automated exposure control and adj ustment of the mA and/or kV according to patient size, radiation dose was kept as low as reasonably a chievable to obtain optimal diagnostic quality images. DICOM format image data is available electro nically for review and comparison. FINDINGS: CEREBRUM: The ventricles are normal for age. No evidence of midline shift, mass lesion, hemorrhage or acute in farction. No extra-axial fluid collections are seen. POSTERIOR FOSSA: The cerebellum and brainstem are intact. The 4th ventricle is midline. The cerebellopontine angle i s unremarkable. EXTRACRANIAL: The visualized portion of the orbits is intact. SKULL: The calvaria is intact. No evidence of skull fracture. CONCLUSION: No acute disease. Mike Dumont MD FACR on July 07, 2017 at 15:45 Board Certified Radiologist. This report was verified electronically.
--- NOTE | 2017-07-07 16:04 | RADRPT ---
EXAM DATE/TIME: 07/07/2017 15:36 [facility] COMPARISON: No previous studies available for comparison. INDICATIONS : Right abdominal pain x 1 month, worse today. Nausea. IV CONTRAST: 80 cc Omnipaque 350 (iohexol) IV ORAL CONTRAST: No oral contrast ingested. RADIATION DOSE: 11.36 CTDIvol (mGy) MEDICAL HISTORY : Gastroesophageal reflux disease. SURGICAL HISTORY : section. Hysterectomy.Umbilical hernia repair.Bladder suspension repair. ENCOUNTER: Initial ACUITY: 1 month PAIN SCALE: 8/10 LOCATION: Right Abdomen TECHNIQUE: Volumetric scanning of the abdomen and pelvis was performed. Using automated exposure control and ad justment of the mA and/or kV according to patient size, radiation dose was kept as low as reasonably achievable to obtain optimal diagnostic quality images. DICOM format image data is available electro nically for review and comparison. FINDINGS: The lung bases are clear. The liver is free of focal defects The spleen, pancreas, adrenals and kidneys are unremarkable There is evidence for previous abdominal hernia surgery Region the cecum and terminal ileum are unremarkable There are no inflammatory changes in the abdomen In the pelvis there is 2.4 cm cystic mass in the right adnexa region. There is no mass on the left. Uterus is unremarkable There is no free fluid or free air Review of bone windows reveals degenerative changes in the lumbar spine. CONCLUSION: 1. Small cystic mass right adnexa region 2. I do not see an etiology for patient's abdominal pain 3. Previous hernia surgery normal bowel gas pattern. Mike Dumont MD FACR on July 07, 2017 at 15:56 Board Certified Radiologist. This report was verified electronically.
[2017-07-07 16:20] VITALS: BP 140/70; PULSE 65; RESP 17; O2SAT 96
[2017-07-07 16:21] VITALS: RESP 18
[2017-07-07] MEDS ORDERED: TYLE325T PO (17:37)
[2017-07-07 18:07] VITALS: BP 151/73
--- NOTE | 2017-07-09 23:26 | EKG ---
Date Performed: 07/07/2017 Time Performed: 14:58:04 PTAGE: 41 years EKG: Sinus rhythm NORMAL ECG PREVIOUS TRACING : 01/16/2014 23.37 Compared to prior tracing no significant change DOCTOR: Isma Marsh Interpretating Date/Time 07/09/2017 23:25:15
== END 2017-07-07 18:09 | disposition home or self-care (01) ==
LOC: PHED 13:16
DX: R10.33 Periumbilical pain (principal); R11.0 Nausea; R55 Syncope and collapse; E78.5 Hyperlipidemia, unspecified; G47.30 Sleep apnea, unspecified; Z86.79 Personal history of other diseases of the circulatory system; Z87.39 Personal history of other diseases of the musculoskeletal system and connective tissue; Z86.59 Personal history of other mental and behavioral disorders; Z87.19 Personal history of other diseases of the digestive system; Z86.69 Personal history of other diseases of the nervous system and sense organs
CPT/HCPCS: 70450; 74177; 80048; 81001; 83690; 83735; 84484; 84703; 85025; 85610; 85730; 93005; 96374; 99285; J2270; Q9967

== ENCOUNTER 2017-07-18 11:17 | Emergency (ER) | payer SELFPAY ==
[~2017-07-18 11:17] MED LIST changes: -BENZ100 PO; -EPIP0.3I IM; -PRED20 PO; +TYLE325T PO
[2017-07-18 11:20] VITALS: BP 123/60; PULSE 79; RESP 20; TEMP 97.8; O2SAT 95
[2017-07-18] MEDS ORDERED: PRED20 PO (11:48)
[2017-07-18] MEDS ORDERED: ROBA500T PO (11:48)
--- NOTE | 2017-07-18 11:49 | PD ---
HPI Chief Complaint: Back/ Neck Pain or Injury Time Seen by Provider: 11:41 Travel History International Travel<30 days: No Contact w/Intl Traveler<30days: No Traveled to known affect area: No History of Present Illness HPI 41-year-old female here with left low back pain radiates into the buttocks and lower leg. She reports working at [employer] she was doing a lot of heavy lifting twisting and turning. She cannot recall a specific injury. She has a history of sciatica. This feels the same. She denies fever, incontinence, paresthesia or weakness of the extremity. There is moderate. PFSH Past Medical History Hx Anticoagulant Therapy: No Arthritis: Yes Asthma: No Autoimmune Disease: No Blood Disorders: No Bipolar Disorder: Yes Anxiety: Yes Depression: Yes Heart Rhythm Problems: No Cancer: No Cardiovascular Problems: Yes (HIGH TRYGLYCERIDES) High Cholesterol: Yes Chemotherapy: No Chest Pain: No Congestive Heart Failure: No COPD: No Cerebrovascular Accident: No Diabetes: No Diminished Hearing: No Endocrine: No Gastrointestinal Disorders: Yes (GERD) GERD: Yes Glaucoma: No Genitourinary: No Headaches: No Hepatitis: No Hiatal Hernia: Yes Hypertension: No Immune Disorder: No Implanted Vascular Access Dvce: No Kidney Stones: No Medical other: Yes (sleep apnea, syncope ) Neurologic: Yes Reproductive: No Respiratory: Yes Immunizations Current: Yes Migraines: Yes Myocardial Infarction: No Radiation Therapy: No Renal Failure: No Seizures: No Sleep Apnea: Yes Thyroid Disease: No Ulcer: No Tetanus Vaccination: Unknown Influenza Vaccination: Yes ?: Not : 3 Para: 3 Miscarriage: 0 : 0 Ovarian Cysts: Yes Past Surgical History Abdominal Surgery: Yes (HERNIA X 4 REPAIR UMBILICAL REGION,) AICD: No Appendectomy: No Arteriovenous Shunt: No Body Medical Devices: MESH FROM HERNIA REPAIR Cardiac Surgery: No Section: Yes (3) Cholecystectomy: No Ear Surgery: No Endocrine Surgery: No Eye Surgery: No Genitourinary Surgery: No Gynecologic Surgery: Yes (C-SECTIONS X 3, HYSTERECTOMY, CATIE OOPHORECTOMY 2010 WITH TUMOR REMOVAL ) Hysterectomy: Yes Insulin Pump: No Joint Replacement: No Neurologic Surgery: No Oral Surgery: No Pacemaker: No Thoracic Surgery: No Other Surgery: Yes (09/15 ABD HYSTERECTOMY, BLADDER REPAIR-SHELF) Social History Alcohol Use: Yes (Occassional ) Tobacco Use: No Substance Use: Yes (occasional use of marijuana) Allergies-Medications (Allergen,Severity, Reaction): Coded Allergies: Sulfa (Sulfonamide Antibiotics) (Verified Allergy, Severe, ANAPHALACTIC SHOCK, 07/18/17) Per pt. diclofenac (Verified Allergy, Severe, ANAPHYLAXIS, 07/18/17) Per pt. etodolac (Verified Allergy, Severe, ANAPHYLAXIS, 07/18/17) Per pt. flurbiprofen (Verified Allergy, Severe, ANAPHYLAXIS, 07/18/17) Per pt. ibuprofen (Verified Allergy, Severe, ANAPHYLAXIS, 07/18/17) Per pt. indomethacin (Verified Allergy, Severe, ANAPHYLAXIS, 07/18/17) Per pt. ketoprofen (Verified Allergy, Severe, ANAPHYLAXIS, 07/18/17) Per pt. ketorolac (Verified Allergy, Severe, ANAPHYLAXIS, 07/18/17) Per pt. naproxen (Verified Allergy, Severe, ANAPHYLAXIS, 07/18/17) Per pt. oxaprozin (Verified Allergy, Severe, ANAPHYLAXIS, 07/18/17) Per pt. strawberry (Verified Allergy, Severe, Anaphylaxis, 07/18/17) Per pt. Reported Meds & Prescriptions Reported Meds & Active Scripts Active Robaxin (Methocarbamol) 500 Mg Tab 500 Mg PO TID Prednisone 20 Mg Tab 40 Mg PO DAILY Take 40 mg (2 tablets) daily for 5 days Estradiol 2 Mg Tab 2 Mg PO DAILY Cymbalta DR (Duloxetine HCl) 20 Mg Capdr 20 Mg PO DAILY Reported Lamictal (Lamotrigine) 100 Mg Tab 150 Mg PO DAILY Review of Systems Except as stated in HPI: all other systems reviewed are Neg Physical Exam Narrative GENERAL: Alert female in no distress. SKIN: Warm and dry. HEAD: Normocephalic. CARDIOVASCULAR: Regular rate and rhythm RESPIRATORY: Breath sounds equal bilaterally. No accessory muscle use. GASTROINTESTINAL: Abdomen soft, non-tender, nondistended. MUSCULOSKELETAL: No cyanosis, or edema. Normal strength and sensation of the lower extremities. 2+ DTRs. BACK: Tenderness to the left sacroiliac joint and left lumbar region. No midline spine tenderness. Without obvious deformity. No CVA tenderness. Data Data Last Documented VS Vital Signs Date Time Temp Pulse Resp B/P (MAP) Pulse Ox O2 Delivery O2 Flow Rate FiO2 07/18/17 11:20 97.8 79 20 123/60 (81) 95 Orders Orders Dexamethasone Inj (Decadron Inj) (07/18/17 12:00) Ed Discharge Order (07/18/17 11:50) MDM Medical Decision Making Medical Screen Exam Complete: Yes Emergency Medical Condition: Yes Differential Diagnosis Sciatica, lumbar strain, herniated disc Narrative Course Patient stable at time of exam. Normal neurologic exam. She is tenderness to the left low lumbar/sacroiliac region. Patient will be treated for sciatica Diagnosis Primary Impression: Sciatica Qualified Codes: M54.32 - Sciatica, left side Referrals: [facility] Departure Forms: Tests/Procedures, Work Release Enter return to work date: Jul 20, 2017 Scripts Methocarbamol (Robaxin) 500 Mg Tab 500 MG PO TID for Muscle Spasm, #12 TAB 0 Refills Prov: Jess Mejia 07/18/17 Prednisone (Prednisone) 20 Mg Tab 40 MG PO DAILY, #10 TAB 0 Refills Take 40 mg (2 tablets) daily for 5 days Prov: Jess Mejia 07/18/17 Disposition: 01 DISCHARGE HOME Condition: Stable Jess Mejia Jul 18, 2017 11:49
[2017-07-18] MEDS ORDERED: DEXAMETHASONE SOD PHOS 4 MG/ML VIAL IM ONE (12:00)
== END 2017-07-18 12:19 | disposition home or self-care (01) ==
LOC: PHEFT 11:17
DX: M54.42 Lumbago with sciatica, left side (principal)
CPT/HCPCS: 96372; 99284; J1100